=== PATIENT | male | born 1965 | race Caucasian/White ===

== ENCOUNTER 2017-03-10 05:39 | Day surgery (SDC) | payer BC, OTHER ==
[2017-03-10] MEDS ORDERED: DIPRIVAN 200 MG/20 ML IV ONE (05:40)
[2017-03-10] MEDS ORDERED: Ketamine HCl 50 MG/ML IV ONE (05:40)
[2017-03-10] MEDS ORDERED: Lactated Ringers 1,000 ML IV SCH (06:30)
[2017-03-10 06:38] VITALS: PULSE 63; O2SAT 96
[2017-03-10 09:01] VITALS: BP 137/79
--- NOTE | 2017-03-10 09:13 | OP ---
SURGERY DATE/TIME: 03/10/2017 0743 PREOPERATIVE DIAGNOSIS: Screening exam. POSTOPERATIVE DIAGNOSIS: Small polyp in the proximal transverse colon. PROCEDURE: Colonoscopy with cold biopsy. SURGEON: Dr. Rod. ANESTHESIA: Medications were given by the anesthesia department. HISTORY: The patient is a 52 year old white male patient presenting now for screening colonoscopy. He was appraised of the risks of the procedure including the risk of perforation, phlebitis, untoward reaction to medication, bleeding or missed lesions. The patient verbalized his understanding and desired to have the procedure performed. DESCRIPTION OF PROCEDURE: The patient was given the medications by the anesthesia department. He had continuous pulse oximetry, ECG monitoring, intermittent blood pressure monitoring and tidal CO2 monitoring during the examination. He was placed in left lateral decubitus position. A digital rectal examination was performed and revealed normal anal sphincter tone and no masses and normal prostate. The flexible Olympus pediatric colonoscope was used to intubate the rectum. A view of the colon was developed sequentially to the cecum. Upon insertion and withdrawal, there was noted a small polyp in the proximal transverse colon and this was approximately 0.5 cm in size. It was destroyed using cold biopsy technique. Upon insertion and withdrawal including a retroflex view in the rectum, no other mucosal lesions were encountered. The scope was removed from the patient who tolerated the procedure well and was sent back to OP recovery in good condition. The prep was noted to be fair.
== END 2017-03-10 09:05 | disposition home or self-care (01) ==
LOC: SDC 05:39 → EDSTATUS 08:18 → SDC 09:05
PROVIDERS: ATTEND Family Medicine
PROC: 0DBL8ZX Excision of Transverse Colon, Via Natural or Artificial Opening Endoscopic, Diagnostic (ICD-10-PCS; principal; 2017-03-10)
DX: K63.5 Polyp of colon (principal); Z12.11 Encounter for screening for malignant neoplasm of colon
CPT/HCPCS: 00810; 88305; J2704

== ENCOUNTER 2021-12-06 03:09 | Observation (INO) | payer SELFPAY ==
[2021-12-06] MEDS ORDERED: BABY ASPIRIN 81 MG CHEW PO ONE (03:10)
[2021-12-06] MEDS ORDERED: CARDIZEM DRIP 100 MG/100 ML D5W 100 ML IV PRN (03:27)
--- NOTE | 2021-12-06 03:38 | ERPHSYRPT ---
- History of Present Illness Time Seen by Provider: 12/06/21 03:10 Historian: patient Exam Limitations: no limitations Physician History: 56 years old male with history of PE/DVT on Coumadin, hypertension, GERD presented in the ER with chief complaint of chest pain waking him up from sleep around midnight. Patient reports this is a dull aching fullness sensation with palpitations and shortness of breath. Patient reports moderate intensity initially with some pain/tingling left leg and arm which is improved. Patient report this has been going off and on for almost a month having fluttering sensation in the middle of the night with some shortness of breath and improves on its own. Also report associated shortness of breath with palpitations. No fevers or chills/cough reported. Patient is in A. fib with RVR on presentation in the ER and this is new onset as patient is unaware of it. Timing/Duration: hour(s) (4), intermittent, sudden, improved Activities at Onset: sleep Quality: fullness, sharpness Location: substernal Chest Pain Radiation: no radiation Severity of Pain-Max: moderate Severity of Pain-Current: mild Associated Symptoms: palpitations, shortness of breath Prior Chest Pain/Cardiac Workup: no prior cardiac workup Nitro Today/Relief: 0.4 mg x 2 Aspirin Treatment Today: unknown Allergies/Adverse Reactions: No Known Drug Allergies Allergy (Unverified 12/06/21 03:43) Home Medications: Carvedilol [Coreg] 6.25 mg PO BID 12/06/21 [History] - Review of Systems Constitutional: No Symptoms Eyes: No Symptoms Ears, Nose, & Throat: No Symptoms Respiratory: Dyspnea Cardiac: Chest Pain, Edema, Palpitations Abdominal/Gastrointestinal: No Symptoms Genitourinary Symptoms: No Symptoms Musculoskeletal: No Symptoms Skin: No Symptoms Neurological: No Symptoms Psychological: No Symptoms Endocrine: No Symptoms Hematologic/Lymphatic: No Symptoms Immunological/Allergic: No Symptoms - Nursing Vital Signs Nursing Vital Signs: Initial Vital Signs Temperature 97.5 F 12/06/21 03:10 Pulse Rate 108 H 12/06/21 03:10 Respiratory Rate 20 12/06/21 03:10 Blood Pressure 134/94 12/06/21 03:10 O2 Sat by Pulse Oximetry 97 12/06/21 03:10 Pain Scale Pain Intensity 2 - Physical Exam General Appearance: no apparent distress, alert Eye Exam: PERRL/EOMI Ears, Nose, Throat Exam: normal ENT inspection Neck Exam: normal inspection, non-tender, supple, full range of motion Respiratory Exam: normal breath sounds, lungs clear Cardiovascular Exam: tachycardia, irregular, edema Gastrointestinal/Abdomen Exam: soft, normal bowel sounds, No tenderness Back Exam: normal inspection, normal range of motion Extremity Exam: normal range of motion, pedal edema Neurologic Exam: alert, oriented x 3, cooperative, trumpet player II-XII nml as tested, normal mood/affect Skin Exam: normal color SpO2 Interpretation: normal SpO2: 98 O2 Delivery: Room Air Ordered Tests: Active Orders 24 hr Category Date Time Status [employer] STAT Care 12/06/21 03:11 Active EKG-ER Only STAT Care 12/06/21 03:10 Active IV Insertion STAT Care 12/06/21 03:10 Active CHEST 1 VIEW (PORTABLE) Stat Exams 12/06/21 03:10 Taken CBC W DIFF Stat Lab 12/06/21 03:41 Completed CMP Stat Lab 12/06/21 03:41 Completed NT PRO BNP Stat Lab 12/06/21 03:41 Completed PROTIME WITH INR Stat Lab 12/06/21 03:42 Completed TROPONIN Q4H Lab 12/06/21 03:41 Completed TROPONIN Q4H Lab 12/06/21 07:15 Ordered TROPONIN Q4H Lab 12/06/21 11:15 Ordered Medication Summary Generic Name Dose Route Start Last Admin Trade Name Freq PRN Reason Stop Dose Admin Diltiazem HCl 100 mls @ 5 mls/hr 12/06/21 03:27 Cardizem Drip 100 Mg/100 Ml D5w IV 01/05/22 03:26 .Q20H PRN HEART RATE/ A-FIB Protocol 5 MG/HR Discontinued Medications Generic Name Dose Route Start Last Admin Trade Name Freq PRN Reason Stop Dose Admin Aspirin 324 mg 12/06/21 03:10 12/06/21 03:48 Aspirin 81 Mg Tab.Chew PO 12/06/21 03:11 324 mg STAT ONE Administration Lab/Rad Data: Laboratory Result Diagrams 12/06/21 03:41 12/06/21 03:41 Laboratory Results 12/06/21 12/06/21 12/06/21 Range/Units 03:42 03:41 03:41 WBC (4.0-10.5) x10^3/uL RBC (4.1-5.6) x10^6/uL Hgb (12.5-18.0) g/dL Hct (42-50) % MCV (78-100) fL MCH (26-32) pg MCHC (32-36) g/dL RDW (11.5-14.0) % Plt Count (150-450) x10^3/uL MPV (7.5-11.0) fL Gran % (36.0-66.0) % Immature Gran % (Auto) (0.00-0.4) % Nucleat RBC Rel Count (0.00-0.1) % Eos # (Auto) (0-0.5) x10^3/uL Immature Gran # (Auto) (0.00-0.03) x10^3u/L Absolute Lymphs (auto) (1.0-4.6) x10^3/uL Absolute Monos (auto) (0.0-1.3) x10^3/uL Absolute Nucleated RBC (0.00-0.01) x10^3u/L Lymphocytes % (24.0-44.0) % Monocytes % (0.0-12.0) % Eosinophils % (0.00-5.0) % Basophils % (0.0-0.4) % Absolute Granulocytes (1.4-6.9) x10^3/uL Basophils # (0-0.4) x10^3/uL PT 30.9 H (9.4-12.5) SECONDS INR 3.24 H (0.8-3.0) Sodium 139 (137-145) mmol/L Potassium 4.3 (3.5-5.1) mmol/L Chloride 104 (98-107) mmol/L Carbon Dioxide 27 (22-30) mmol/L Anion Gap 12.6 (5-15) MEQ/L BUN 25 H (9-20) mg/dL Creatinine 1.35 H (0.66-1.25) mg/dL Estimated GFR 58.5 ML/MIN Glucose 116 H (74-106) mg/dL Calcium 8.9 (8.4-10.2) mg/dL Total Bilirubin 0.70 (0.2-1.3) mg/dL AST 38 (17-59) U/L ALT 41 (0-50) U/L Alkaline Phosphatase 54 (38-126) U/L Troponin I 0.017 (0.000-0.034) ng/mL NT-Pro-B Natriuret Pep 360 (0-900) pg/mL Serum Total Protein 7.4 (6.3-8.2) g/dL Albumin 4.3 (3.5-5.0) g/dL 12/06/21 Range/Units 03:41 WBC 6.8 (4.0-10.5) x10^3/uL RBC 4.80 (4.1-5.6) x10^6/uL Hgb 15.2 (12.5-18.0) g/dL Hct 46.2 (42-50) % MCV 96.3 (78-100) fL MCH 31.7 (26-32) pg MCHC 32.9 (32-36) g/dL RDW 13.7 (11.5-14.0) % Plt Count 169 (150-450) x10^3/uL MPV 10.7 (7.5-11.0) fL Gran % 43.7 (36.0-66.0) % Immature Gran % (Auto) 0.3 (0.00-0.4) % Nucleat RBC Rel Count 0.0 (0.00-0.1) % Eos # (Auto) 0.23 (0-0.5) x10^3/uL Immature Gran # (Auto) 0.02 (0.00-0.03) x10^3u/L Absolute Lymphs (auto) 2.53 (1.0-4.6) x10^3/uL Absolute Monos (auto) 0.99 (0.0-1.3) x10^3/uL Absolute Nucleated RBC 0.00 (0.00-0.01) x10^3u/L Lymphocytes % 37.4 (24.0-44.0) % Monocytes % 14.6 H (0.0-12.0) % Eosinophils % 3.4 (0.00-5.0) % Basophils % 0.6 (0.0-0.4) % Absolute Granulocytes 2.95 (1.4-6.9) x10^3/uL Basophils # 0.04 (0-0.4) x10^3/uL PT (9.4-12.5) SECONDS INR (0.8-3.0) Sodium (137-145) mmol/L Potassium (3.5-5.1) mmol/L Chloride (98-107) mmol/L Carbon Dioxide (22-30) mmol/L Anion Gap (5-15) MEQ/L BUN (9-20) mg/dL Creatinine (0.66-1.25) mg/dL Estimated GFR ML/MIN Glucose (74-106) mg/dL Calcium (8.4-10.2) mg/dL Total Bilirubin (0.2-1.3) mg/dL AST (17-59) U/L ALT (0-50) U/L Alkaline Phosphatase (38-126) U/L Troponin I (0.000-0.034) ng/mL NT-Pro-B Natriuret Pep (0-900) pg/mL Serum Total Protein (6.3-8.2) g/dL Albumin (3.5-5.0) g/dL - Progress Progress: improved Air Movement: good Progress Note: 12/06/21 04:44 56 years old is evaluated for palpitation with shortness of breath and chest pain. EKG showed atrial fibrillation with rate in low 100s. It is bouncing between 90-1 10. patient is anticoagulated with Coumadin 3.24. Chest x-ray showed no acute cardiopulmonary findings. Normal white count. Negative initial troponin. He will be given a bolus of Cardizem and Cardizem drip if heart rate stays continuously above 110. Atrial fibrillation is new onset. Discussed with and patient is being admitted. Blood Culture(s) Obtained: No Antibiotics given: No Discussed with : Cipriano Will see patient in: hospital (observation) Counseled pt/family regarding: lab results, diagnosis, need for follow-up, rad results - Departure Departure Disposition: Observation Clinical Impression: Atrial fibrillation with RVR, Chest pain, rule out acute myocardial infarction Condition: Stable Critical Care Time: No
[2021-12-06 03:43] LABS: Absolute Neutrophil Ct (ANC) 2.95 x10^3/uL (1.4-6.9); Basophil (Absolute #) 0.04 x10^3/uL (0-0.4); Eosinophil % 3.4 % (0.00-5.0); Eosinophil (Absolute #) 0.23 x10^3/uL (0-0.5); Hematocrit 46.2 % (42-50); Hemoglobin 15.2 g/dL (12.5-18.0); Lymphocyte (Absolute #) 2.53 x10^3/uL (1.0-4.6); Lymphocytes % 37.4 % (24.0-44.0); Mean Cell Volume 96.3 fL (78-100); Mean Corpuscular Hemoglobin 31.7 pg (26-32); Mean Corpuscular Hgb Concent. 32.9 g/dL (32-36); Mean Platelet Volume 10.7 fL (7.5-11.0); Monocyte (Absolute #) 0.99 x10^3/uL (0.0-1.3); Monocytes % 14.6 % (0.0-12.0); Neutrophil % 43.7 % (36.0-66.0); Platelet Count 169 x10^3/uL (150-450); Red Cell Distribution Width 13.7 % (11.5-14.0); White Blood Count 6.8 x10^3/uL (4.0-10.5)
[2021-12-06 03:57] LABS: INR 3.24 (0.8-3.0); PROTIME 30.9 SECONDS (9.4-12.5)
[2021-12-06 04:05] LABS: ALBUMIN 4.3 g/dL (3.5-5.0); ANION GAP 12.6 MEQ/L (5-15); BILIRUBIN,TOTAL 0.7 mg/dL (0.2-1.3); Calcium 8.9 mg/dL (8.4-10.2); Creatinine 1 1.35 mg/dL (0.66-1.25); EST GLOMERULAR FILTRATION RATE 58.5 ML/MIN; Potassium 4.3 mmol/L (3.5-5.1); Total Protein 7.4 g/dL (6.3-8.2)
[2021-12-06] MEDS ORDERED: Cardizem IV 50 MG/10 ML IV ONE ×2 (04:47→04:56)
[2021-12-06] MEDS ORDERED: Sodium Chloride 0.9% 1000 ML 1,000 ML ONE (04:56)
[2021-12-06] MEDS ORDERED: Sodium Chloride 0.9% 1000 ML 1,000 ML IV SCH (05:00)
[2021-12-06 05:40] LABS: INFLUENZA A NEGATIVE (NEGATIVE); INFLUENZA B NEGATIVE (NEGATIVE); RESPIRATORY SYNCTIAL VIRUS NEGATIVE (Negative); SARS-CoV-2 Xpert Express NEGATIVE (NEGATIVE)
[2021-12-06] MEDS ORDERED: MORPHINE SULFATE 4 MG INJ IV PRN (06:17)
[2021-12-06] MEDS ORDERED: TYLENOL 325 MG PO PRN (06:17)
[2021-12-06] MEDS ORDERED: DUONEB 0.5-3 MG/3 ml Neb IH PRN (06:17)
[2021-12-06] MEDS ORDERED: Zofran 4 MG/2 ML VIAL IV PRN (06:17)
--- NOTE | 2021-12-06 07:57 | PCM.HP ---
History of Present Illness - Chief Complaint Chief Complaint: palpitations for 1 day History of Present Illness: Mr.WILLIAMSON LUCIO is a 56 year old male.with history of PE/DVT on Coumadin, hypertension, GERD presented in the ER with chief complaint of chest pain waking him up from sleep around midnight. Patient reports this is a dull aching fullness sensation with palpitations and shortness of breath. Patient reports moderate intensity initially with some pain/tingling left leg and arm which is improved. Patient report this has been going off and on for almost a month having fluttering sensation in the middle of the night with some shortness of breath and improves on its own. Also report associated shortness of breath with palpitations. No fevers or chills/cough reported. Patient is in A. fib with RVR on presentation in the ER and this is new onset as patient is unaware of it. Timing/Duration: hour(s) (4), intermittent, sudden, improved Activities at Onset: sleep Quality: fullness, sharpness Location: substernal Chest Pain Radiation: no radiation Severity of Pain-Max: moderate Severity of Pain-Current: mild Associated Symptoms: palpitations, shortness of breath Prior Chest Pain/Cardiac Workup: no prior cardiac workup Nitro Today/Relief: 0.4 mg x 2 Aspirin Treatment Today: unknown - Review of Systems Constitutional: No Fever, No Chills Eyes: No Symptoms Ears, Nose, & Throat: No Symptoms Respiratory: No Cough, No Short Of Breath Cardiac: Palpitations, No Chest Pain, No Edema, No Syncope Abdominal/Gastrointestinal: No Abdominal Pain, No Nausea, No Vomiting, No Diarrhea Genitourinary Symptoms: No Dysuria Musculoskeletal: No Back Pain, No Neck Pain Skin: No Rash Neurological: No Dizziness, No Focal Weakness, No Sensory Changes Psychological: No Symptoms Endocrine: No Symptoms Hematologic/Lymphatic: No Symptoms Immunological/Allergic: No Symptoms Medications & Allergies Home Medications: Home Medication List Carvedilol [Coreg] 6.25 mg PO BID 12/06/21 [History Confirmed 12/06/21] Nitroglycerin 0.4 mg Tablet [Nitrostat 0.4 MG Tablet] 0.4 mg SL UD PRN 12/06/21 [History Confirmed 12/06/21] PANTOPRAZOLE 40 mg Tablet [Protonix 40MG Tablet] 40 mg PO DAILY 12/06/21 [History Confirmed 12/06/21] Warfarin Sodium 3 mg PO DAILY 12/06/21 [History Confirmed 12/06/21] Allergies/Adverse Reactions: Allergies Allergy/AdvReac Type Severity Reaction Status Date / Time No Known Drug Allergies Allergy Unverified 12/06/21 03:43 - Past Medical History Past Medical History: Yes Neurological History: No Pertinent History ENT History: No Pertinent History Cardiac History: Angina, Arrhythmia, Deep Vein Thrombosis, Hypertension Respiratory History: Pulmonary Embolism Endocrine Medical History: No Pertinent History Musculoskelatal History: No Pertinent History GI Medical History: No Pertinent History History: No Pertinent History Pyscho-Social History: No Pertinent History Male Reproductive Disorders: No Pertinent History Comment: 2004 blood clots behind left knee, and in right lung and pt has been on coumadin since. - Past Surgical History Past Surgical History: Yes Neuro Surgical History: No Pertinent History Cardiac History: No Pertinent History Respiratory Surgery: No Pertinent History GI Surgical History: No Pertinent History Genitourinary Surgical Hx: No Pertinent History Musculskeletal Surgical Hx: Orthopedic Surgery Male Surgical History: No Pertinent History Other Surgical History: pins in right hand - Social History Smoking Status: Never smoker Exposure to second hand smoke: Yes Alcohol: Occasionally Drug Use: none - Physical Exam Vital Signs: Vital Signs - 24 hr Temp Pulse Resp BP BP Pulse Ox 12/06/21 07:32 93 L 12/06/21 06:21 97.9 F 76 22 129/100 99 12/06/21 05:57 77 18 106/75 97 12/06/21 05:32 97.8 F 76 18 127/92 98 12/06/21 05:01 96 H 18 116/96 98 12/06/21 04:50 98 12/06/21 04:11 103 H 20 118/92 99 12/06/21 03:10 97.5 F 108 H 20 134/94 97 General Appearance: no apparent distress, alert Neurologic Exam: alert, oriented x 3, cooperative, normal mood/affect, nml cerebellar function, nml station & gait, sensation nml, No motor deficits Eye Exam: PERRL/EOMI, eyes nml inspection Ears, Nose, Throat Exam: normal ENT inspection, TMs normal, pharynx normal, moist mucous membranes Neck Exam: normal inspection, non-tender, supple, full range of motion Respiratory Exam: normal breath sounds, lungs clear, No respiratory distress Cardiovascular Exam: irregular Gastrointestinal/Abdomen Exam: soft, normal bowel sounds, No tenderness, No mass Back Exam: normal inspection, normal range of motion, No CVA tenderness, No vertebral tenderness Extremity Exam: normal inspection, normal range of motion, pelvis stable Skin Exam: normal color, warm, dry, No rash Lymphatic Exam: No adenopathy Results - Labs Lab/Micro Results: Lab Results-Last 24 Hours 12/06/21 12/06/21 12/06/21 Range/Units 03:41 03:41 03:41 WBC 6.8 (4.0-10.5) x10^3/uL RBC 4.80 (4.1-5.6) x10^6/uL Hgb 15.2 (12.5-18.0) g/dL Hct 46.2 (42-50) % MCV 96.3 (78-100) fL MCH 31.7 (26-32) pg MCHC 32.9 (32-36) g/dL RDW 13.7 (11.5-14.0) % Plt Count 169 (150-450) x10^3/uL MPV 10.7 (7.5-11.0) fL Gran % 43.7 (36.0-66.0) % Immature Gran % (Auto) 0.3 (0.00-0.4) % Nucleat RBC Rel Count 0.0 (0.00-0.1) % Eos # (Auto) 0.23 (0-0.5) x10^3/uL Immature Gran # (Auto) 0.02 (0.00-0.03) x10^3u/L Absolute Lymphs (auto) 2.53 (1.0-4.6) x10^3/uL Absolute Monos (auto) 0.99 (0.0-1.3) x10^3/uL Absolute Nucleated RBC 0.00 (0.00-0.01) x10^3u/L Lymphocytes % 37.4 (24.0-44.0) % Monocytes % 14.6 H (0.0-12.0) % Eosinophils % 3.4 (0.00-5.0) % Basophils % 0.6 (0.0-0.4) % Absolute Granulocytes 2.95 (1.4-6.9) x10^3/uL Basophils # 0.04 (0-0.4) x10^3/uL PT (9.4-12.5) SECONDS INR (0.8-3.0) Sodium 139 (137-145) mmol/L Potassium 4.3 (3.5-5.1) mmol/L Chloride 104 (98-107) mmol/L Carbon Dioxide 27 (22-30) mmol/L Anion Gap 12.6 (5-15) MEQ/L BUN 25 H (9-20) mg/dL Creatinine 1.35 H (0.66-1.25) mg/dL Estimated GFR 58.5 ML/MIN Glucose 116 H (74-106) mg/dL Calcium 8.9 (8.4-10.2) mg/dL Total Bilirubin 0.70 (0.2-1.3) mg/dL AST 38 (17-59) U/L ALT 41 (0-50) U/L Alkaline Phosphatase 54 (38-126) U/L Troponin I 0.017 (0.000-0.034) ng/mL NT-Pro-B Natriuret Pep 360 (0-900) pg/mL Serum Total Protein 7.4 (6.3-8.2) g/dL Albumin 4.3 (3.5-5.0) g/dL Influenza Type A Ag (NEGATIVE) Influenza Type B Ag (NEGATIVE) RSV (PCR) (Negative) SARS-CoV-2 (PCR) (NEGATIVE) 12/06/21 12/06/21 12/06/21 Range/Units 03:42 05:02 07:03 WBC (4.0-10.5) x10^3/uL RBC (4.1-5.6) x10^6/uL Hgb (12.5-18.0) g/dL Hct (42-50) % MCV (78-100) fL MCH (26-32) pg MCHC (32-36) g/dL RDW (11.5-14.0) % Plt Count (150-450) x10^3/uL MPV (7.5-11.0) fL Gran % (36.0-66.0) % Immature Gran % (Auto) (0.00-0.4) % Nucleat RBC Rel Count (0.00-0.1) % Eos # (Auto) (0-0.5) x10^3/uL Immature Gran # (Auto) (0.00-0.03) x10^3u/L Absolute Lymphs (auto) (1.0-4.6) x10^3/uL Absolute Monos (auto) (0.0-1.3) x10^3/uL Absolute Nucleated RBC (0.00-0.01) x10^3u/L Lymphocytes % (24.0-44.0) % Monocytes % (0.0-12.0) % Eosinophils % (0.00-5.0) % Basophils % (0.0-0.4) % Absolute Granulocytes (1.4-6.9) x10^3/uL Basophils # (0-0.4) x10^3/uL PT 30.9 H (9.4-12.5) SECONDS INR 3.24 H (0.8-3.0) Sodium (137-145) mmol/L Potassium (3.5-5.1) mmol/L Chloride (98-107) mmol/L Carbon Dioxide (22-30) mmol/L Anion Gap (5-15) MEQ/L BUN (9-20) mg/dL Creatinine (0.66-1.25) mg/dL Estimated GFR ML/MIN Glucose (74-106) mg/dL Calcium (8.4-10.2) mg/dL Total Bilirubin (0.2-1.3) mg/dL AST (17-59) U/L ALT (0-50) U/L Alkaline Phosphatase (38-126) U/L Troponin I < 0.012 (0.000-0.034) ng/mL NT-Pro-B Natriuret Pep (0-900) pg/mL Serum Total Protein (6.3-8.2) g/dL Albumin (3.5-5.0) g/dL Influenza Type A Ag NEGATIVE (NEGATIVE) Influenza Type B Ag NEGATIVE (NEGATIVE) RSV (PCR) NEGATIVE (Negative) SARS-CoV-2 (PCR) NEGATIVE (NEGATIVE) - Radiology Impressions Radiology Exams & Impressions: Radiology Procedures Category Date Time Status CHEST 1 VIEW (PORTABLE) Stat Exams 12/06/21 03:10 Taken - Other Procedures and Tests Respiratory Therapy 12/06/21 06:17 Oxygen Nasal Cannula 2 lpm Assessment/Plan (1) Atrial fibrillation with RVR Current Visit: Yes Status: Acute Assessment & Plan: Chief Complaint Diagnosis Afib with RVR Allergies Allergy/AdvReac Type Severity Reaction Status Date / Time No Known Drug Allergies Allergy Unverified 12/06/21 03:43 Vital Signs (Last 24 hours) Temp Pulse Resp BP BP Pulse Ox 12/06/21 07:32 93 L 12/06/21 06:21 97.9 F 76 22 129/100 99 12/06/21 05:57 77 18 106/75 97 12/06/21 05:32 97.8 F 76 18 127/92 98 12/06/21 05:01 96 H 18 116/96 98 12/06/21 04:50 98 12/06/21 04:11 103 H 20 118/92 99 12/06/21 03:10 97.5 F 108 H 20 134/94 97 Home Medications Medication Instructions Recorded Confirmed Last Taken Type Carvedilol [Coreg] 6.25 mg PO BID 12/06/21 12/06/21 12/05/21 21:30 History 6.25 MG Nitroglycerin 0.4 mg Tablet 0.4 mg SL UD PRN 12/06/21 12/06/21 12/06/21 History [Nitrostat 0.4 MG Tablet] 0200 PANTOPRAZOLE 40 mg Tablet 40 mg PO DAILY 12/06/21 12/06/21 12/05/21 History [Protonix 40MG Tablet] Warfarin Sodium 3 mg PO DAILY 12/06/21 12/06/21 12/05/21 History Current Medications Generic Name Dose Route Start Last Admin Trade Name Freq PRN Reason Stop Dose Admin Acetaminophen 650 mg 12/06/21 06:17 Acetaminophen 325 Mg Tablet PO 01/05/22 06:16 Q4H PRN PRN PAIN AND/OR FEVER Sodium Chloride 1,000 mls @ 100 mls/hr 12/06/21 06:17 Sodium Chloride 0.9% 1000 Ml IV 01/05/22 06:16 .Q10H ROSA Morphine Sulfate 4 mg 12/06/21 06:17 Morphine Sulfate 4 Mg/Ml Injection IV 12/11/21 06:16 Q4H PRN PRN PAIN Ondansetron HCl 4 mg 12/06/21 06:17 Ondansetron Hcl 4 Mg/2 Ml Vial IV 01/05/22 06:16 Q6H PRN PRN NAUSEA/VOMITING Pantoprazole Sodium 40 mg 12/06/21 10:00 Pantoprazole 40 Mg Vial IV 01/05/22 09:59 Q24H10 ROSA Discontinued Medications Generic Name Dose Route Start Last Admin Trade Name Freq PRN Reason Stop Dose Admin Albuterol/Ipratropium 3 ml 12/06/21 06:17 Ipratropium/Albuterol Sulfate 3 Ml Ampul.Neb IH 01/05/22 06:16 Q4HPRN PRN SHORTNESS OF BREATH/WHEEZING Aspirin 324 mg 12/06/21 03:10 12/06/21 03:48 Aspirin 81 Mg Tab.Chew PO 12/06/21 03:11 324 mg STAT ONE Administration Diltiazem HCl 15 mg 12/06/21 04:47 12/06/21 04:58 Diltiazem Hcl Iv 5 Mg/Ml Vial IV 12/06/21 04:48 15 mg STAT ONE Administration Diltiazem HCl Confirm 12/06/21 04:56 Diltiazem Hcl Iv 5 Mg/Ml Vial Administered 12/06/21 04:57 Dose 50 mg IV .STK-MED ONE Diltiazem HCl 100 mls @ 5 mls/hr 12/06/21 03:27 Cardizem Drip 100 Mg/100 Ml D5w IV 01/05/22 03:26 .Q20H PRN HEART RATE/ A-FIB Protocol 5 MG/HR Sodium Chloride Confirm 12/06/21 04:56 Sodium Chloride 0.9% 1000 Ml Administered 12/06/21 04:57 Dose 1,000 mls @ ud .ROUTE .STK-MED ONE Sodium Chloride 1,000 mls @ 100 mls/hr 12/06/21 05:00 12/06/21 05:00 Sodium Chloride 0.9% 1000 Ml IV 01/05/22 04:59 100 mls/hr .Q10H ROSA Administration Intake & Output (Last 24 hours) 12/03/21 12/04/21 12/05/21 12/06/21 11:59 11:59 11:59 11:59 Weight 113.4 kg Laboratory Results (Last 24 hours) 12/06/21 12/06/21 12/06/21 07:03 05:02 03:42 WBC RBC Hgb Hct MCV MCH MCHC RDW Plt Count MPV Gran % Immature Gran % (Auto) Nucleat RBC Rel Count Eos # (Auto) Immature Gran # (Auto) Absolute Lymphs (auto) Absolute Monos (auto) Absolute Nucleated RBC Lymphocytes % Monocytes % Eosinophils % Basophils % Absolute Granulocytes Basophils # PT 30.9 H INR 3.24 H Sodium Potassium Chloride Carbon Dioxide Anion Gap BUN Creatinine Estimated GFR Glucose Calcium Total Bilirubin AST ALT Alkaline Phosphatase Troponin I < 0.012 NT-Pro-B Natriuret Pep Serum Total Protein Albumin Influenza Type A Ag NEGATIVE Influenza Type B Ag NEGATIVE RSV (PCR) NEGATIVE SARS-CoV-2 (PCR) NEGATIVE 12/06/21 12/06/21 12/06/21 03:41 03:41 03:41 WBC 6.8 RBC 4.80 Hgb 15.2 Hct 46.2 MCV 96.3 MCH 31.7 MCHC 32.9 RDW 13.7 Plt Count 169 MPV 10.7 Gran % 43.7 Immature Gran % (Auto) 0.3 Nucleat RBC Rel Count 0.0 Eos # (Auto) 0.23 Immature Gran # (Auto) 0.02 Absolute Lymphs (auto) 2.53 Absolute Monos (auto) 0.99 Absolute Nucleated RBC 0.00 Lymphocytes % 37.4 Monocytes % 14.6 H Eosinophils % 3.4 Basophils % 0.6 Absolute Granulocytes 2.95 Basophils # 0.04 PT INR Sodium 139 Potassium 4.3 Chloride 104 Carbon Dioxide 27 Anion Gap 12.6 BUN 25 H Creatinine 1.35 H Estimated GFR 58.5 Glucose 116 H Calcium 8.9 Total Bilirubin 0.70 AST 38 ALT 41 Alkaline Phosphatase 54 Troponin I 0.017 NT-Pro-B Natriuret Pep 360 Serum Total Protein 7.4 Albumin 4.3 Influenza Type A Ag Influenza Type B Ag RSV (PCR) SARS-CoV-2 (PCR) Orders (Last 24 hours) Category Date Time Status Bedrest ROUTINE Activity 12/06/21 06:17 Active Up With Assistance ROUTINE Activity 12/06/21 06:17 Active Hydro Technician STAT Care 12/06/21 03:11 Completed Code Status Order ROUTINE Care 12/06/21 06:17 Active Code Status Order ROUTINE Care 12/06/21 06:17 Completed EKG-ER Only STAT Care 12/06/21 03:10 Completed Fall Protocol Q1H Care 12/06/21 06:17 Active IV Care Q6H Care 12/06/21 06:17 Active IV Care Q6H Care 12/06/21 06:17 Completed IV Insertion STAT Care 12/06/21 03:[address] in Observation ROUTINE Care 12/06/21 06:17 Active Rc Novak, Apply ROUTINE Care 12/06/21 06:17 Active Weight,Daily 0600 Care 12/06/21 06:17 Active Heart-Healthy Diet Diet 12/06/21 Breakfast Active CHEST 1 VIEW (PORTABLE) Stat Exams 12/06/21 03:10 Taken CBC W DIFF Stat Lab 12/06/21 03:41 Completed CMP Stat Lab 12/06/21 03:41 Completed COVID/FLU/RSV Panel Stat Lab 12/06/21 05:02 Completed NT PRO BNP Stat Lab 12/06/21 03:41 Completed PROTIME WITH INR Stat Lab 12/06/21 03:42 Completed TROPONIN Q4H Lab 12/06/21 03:41 Completed TROPONIN Q4H Lab 12/06/21 07:03 Completed TROPONIN Q4H Lab 12/06/21 11:15 Ordered Acetaminophen 325 mg [Tylenol 325 mg] Med 12/06/21 06:17 Active 650 mg PO Q4H PRN PRN Albuterol/Ipratropium 3ml Neb* [DUONEB 0.5-3 MG/3 ml Med 12/06/21 06:17 Discontinued Neb] 3 ml IH Q4HPRN PRN Aspirin 81 gm Chew [Baby Aspirin 81 mg Chew] Med 12/06/21 03:10 Discontinued 324 mg PO STAT ONE Diltiazem HCl 100 mg/100 ml [Cardizem Drip 100 mg/100 Med 12/06/21 03:27 Discontinued ml D5w] 100 ml IV 5 mg/hr Diltiazem HCl 50 mg/10 ml [Cardizem IV 50 MG/10 ML Med 12/06/21 04:47 Discontinued *] 15 mg IV STAT ONE Diltiazem HCl 50 mg/10 ml [Cardizem IV 50 MG/10 ML Med 12/06/21 04:56 Discontinued *] 50 mg IV .STK-MED ONE Morphine Sulfate 4 mg Inj Med 12/06/21 06:17 Active 4 mg IV Q4H PRN PRN NaCl 0.9% 1000 ml [Sodium Chloride 0.9% 1000 ML] 1,000 Med 12/06/21 04:56 Discontinued ml .ROUTE UD NaCl 0.9% 1000 ml [Sodium Chloride 0.9% 1000 ML] 1,000 Med 12/06/21 05:00 Discontinued ml IV 100 mls/hr NaCl 0.9% 1000 ml [Sodium Chloride 0.9% 1000 ML] 1,000 Med 12/06/21 06:17 Active ml IV 100 mls/hr Ondansetron HCl 4 mg/2 ml [Zofran 4 MG/2 ML VIAL] Med 12/06/21 06:17 Active 4 mg IV Q6H PRN PRN Pantoprazole 40 mg [Protonix 40 mg IV] Med 12/06/21 10:00 Active 40 mg IV Q24H10 Oxygen Nasal Cannula 2 lpm RT 12/06/21 06:17 Active Pulse Oximetry .continuos RT 12/06/21 07:32 Active Transfer Order Routine Transfer 12/06/21 Completed Patient Care Notes (Last 24 hours) 12/06/21 05:45 Nursing Note by Chela Bruno B/P 120/82, 67 A FIB, 18, 97% ON ROOM AIR. Initialized on 12/06/21 05:45 - END OF NOTE 12/06/21 05:39 Nursing Note by Chela Bruno PT CONTINUES TO REST WITHOUT DISTRESS AT THIS TIME, HR 77 REMAINS IN AFIB, RESP 16, 127/89, 97% SAT ON ROOM AIR. WILL CONTINUE TO MONITOR CLOSELY. REMAINS AT BEDSIDE. I WILL BE REPORTING OFF TO HOLA R.N AT THIS TIME. Initialized on 12/06/21 05:39 - END OF NOTE 12/06/21 05:27 Nursing Note by Chela Bruno 0500- ADMINISTERED 15MG CARDIZEM SLOW IVP PUSH, PT TOLERATED WELL. B/P 127/94, HR 81, SAT 97%, RESP 22. pT DENIES ANY C/O AT THIS TIME. PT STATES THAT C/P IS INTERMIT. AND IT IS STILL A 2/10. LEFT LEG REMAINS SWOLLEN AROUND ANKLE AND LOWER CALF. PT HAS BEEN BEING TREATED FOR BLOOD CLOTS BEHIND THE LEFT KNEE SINCE 2003. PP PALPATED. WILL CONTINUE TO MONITOR CLOSELY. Initialized on 12/06/21 05:27 - END OF NOTE Code(s): I48.91 - UNSPECIFIED ATRIAL FIBRILLATION (2) Chest pain, rule out acute myocardial infarction Current Visit: Yes Status: Acute Code(s): R07.9 - CHEST PAIN, UNSPECIFIED
--- NOTE | 2021-12-06 09:15 | XRAY ---
Indication: Chest pain. Comparison: None Portable chest demonstrates normal heart and lungs with incidental small right base calcified granuloma. Bony thorax intact with minimal degenerative changes.
[2021-12-06] MEDS ORDERED: PROTONIX 40 MG IV IV SCH (10:00)
[2021-12-06] MEDS ORDERED: Nitrostat 0.4 MG Tablet SL PRN (10:20)
[2021-12-06] MEDS: Protonix 40MG Tablet PO SCH ×2 (10:48→10:53)
[2021-12-06 11:31] LABS: Appearance CLEAR (CLEAR); Bilirubin NEGATIVE (NEGATIVE); Dipstick done @ ? MAIN LAB; Glucose NEGATIVE (NEGATIVE); Ketones NEGATIVE (NEGATIVE); Nitrite NEGATIVE (NEGATIVE); Ph 6.5 (5-6); Protein,Urine Dip NEGATIVE (Negative); RBC NEGATIVE Ery/ul (0-5); Urobilinogen 0.2 mg/dL (0-1)
[2021-12-06 11:57] LABS: Urine Cultured Indicated? NO
[2021-12-06] MEDS: Cardizem CD PO SCH (12:43)
[2021-12-06] MEDS: Sodium Chloride 0.9% 1000 ML 1,000 ML IV SCH ×2 (15:12→19:40)
[2021-12-06] MEDS ORDERED: Coumadin 3 MG PO SCH (18:00)
[2021-12-06] MEDS: Coreg PO SCH (21:30)
[2021-12-07] MEDS: Sodium Chloride 0.9% 1000 ML 1,000 ML IV SCH (00:17)
[2021-12-07] MEDS ORDERED: CEPACOL SORE THROAT LOZENGE PO PRN (06:21)
[2021-12-07] MEDS: Coreg PO SCH (08:50)
[2021-12-07] MEDS: Cardizem CD PO SCH (08:50)
[2021-12-07] MEDS: Protonix 40MG Tablet PO SCH (08:50)
[2021-12-07] MEDS ORDERED: NON-FORMULARY ITEM (Warfarin Sodium [Warfarin Sodium] 2 MG Tablet) PO SCH (10:00)
[2021-12-07 11:51] VITALS: BP 129/96; PULSE 90; O2SAT 96
--- NOTE | 2021-12-07 20:19 | PCM.DS ---
Discharge Summary Date of Admission: 12/06/21 06:10 Admitting Physician: KELSEY PUGA Primary Care Provider: DAYAN BAUTISTA Allergies Allergies No Known Drug Allergies Allergy (Verified 12/06/21 09:18) Hospital Summary - Hospital Course Hospital Course: Chief Complaint Diagnosis palpitations for 1 day Allergies Allergy/AdvReac Type Severity Reaction Status Date / Time No Known Drug Allergies Allergy Verified 12/06/21 09:18 Vital Signs (Last 24 hours) Temp Pulse Resp BP Pulse Ox 12/07/21 12:00 90 12/07/21 11:49 98.1 F 90 16 129/96 96 12/07/21 07:32 98.2 F 81 16 101/84 98 12/07/21 07:30 76 12/07/21 04:00 97.1 F 76 15 113/88 98 12/07/21 00:20 96.8 F 78 21 104/79 92 L 12/07/21 00:01 85 Home Medications Medication Instructions Recorded Confirmed Last Taken Type Carvedilol [Coreg] 6.25 mg PO BID 12/06/21 12/06/21 12/05/21 21:30 History 6.25 MG Nitroglycerin 0.4 mg Tablet 0.4 mg SL UD PRN 12/06/21 12/06/21 12/06/21 History [Nitrostat 0.4 MG Tablet] 0200 PANTOPRAZOLE 40 mg Tablet 40 mg PO DAILY 12/06/21 12/06/21 12/05/21 History [Protonix 40MG Tablet] Warfarin Sodium 3 mg PO DAILY 12/06/21 12/06/21 12/05/21 History Diltiazem HCl [Cardizem Cd] 120 mg PO DAILY 30 Days #30 cap 12/07/21 Unknown Rx Current Medications Discontinued Medications Generic Name Dose Route Start Last Admin Trade Name Freq PRN Reason Stop Dose Admin Acetaminophen 650 mg 12/06/21 06:17 Acetaminophen 325 Mg Tablet PO 01/05/22 06:16 Q4H PRN PRN PAIN AND/OR FEVER Albuterol/Ipratropium 3 ml 12/06/21 06:17 Ipratropium/Albuterol Sulfate 3 Ml Ampul.Neb IH 01/05/22 06:16 Q4HPRN PRN SHORTNESS OF BREATH/WHEEZING Aspirin 324 mg 12/06/21 03:10 12/06/21 03:48 Aspirin 81 Mg Tab.Chew PO 12/06/21 03:11 324 mg STAT ONE Administration Carvedilol 6.25 mg 12/06/21 22:00 12/07/21 08:50 Carvedilol 6.25 Mg Tablet PO 01/05/22 21:59 Not Given BID ROSA Diltiazem HCl 15 mg 12/06/21 04:47 12/06/21 04:58 Diltiazem Hcl Iv 5 Mg/Ml Vial IV 12/06/21 04:48 15 mg STAT ONE Administration Diltiazem HCl Confirm 12/06/21 04:56 Diltiazem Hcl Iv 5 Mg/Ml Vial Administered 12/06/21 04:57 Dose 50 mg IV .STK-MED ONE Diltiazem HCl 180 mg 12/06/21 13:00 12/07/21 08:50 Diltiazem Hcl Cd 180 Mg Cap.Sr.24h PO 01/05/22 12:59 180 mg DAILY ROSA Administration Diltiazem HCl 100 mls @ 5 mls/hr 12/06/21 03:27 Cardizem Drip 100 Mg/100 Ml D5w IV 01/05/22 03:26 .Q20H PRN HEART RATE/ A-FIB Protocol 5 MG/HR Sodium Chloride Confirm 12/06/21 04:56 Sodium Chloride 0.9% 1000 Ml Administered 12/06/21 04:57 Dose 1,000 mls @ ud .ROUTE .STK-MED ONE Sodium Chloride 1,000 mls @ 100 mls/hr 12/06/21 05:00 12/06/21 05:00 Sodium Chloride 0.9% 1000 Ml IV 01/05/22 04:59 100 mls/hr .Q10H ROSA Administration Sodium Chloride 1,000 mls @ 100 mls/hr 12/06/21 06:17 12/07/21 00:17 Sodium Chloride 0.9% 1000 Ml IV 01/05/22 06:16 100 mls/hr .Q10H ROSA Administration Morphine Sulfate 4 mg 12/06/21 06:17 Morphine Sulfate 4 Mg/Ml Injection IV 12/11/21 06:16 Q4H PRN PRN PAIN Nitroglycerin 0.4 mg 12/06/21 10:20 Nitroglycerin 0.4 Mg Tablet Bottle SL 01/05/22 10:19 UD PRN CHEST PAIN Ondansetron HCl 4 mg 12/06/21 06:17 Ondansetron Hcl 4 Mg/2 Ml Vial IV 01/05/22 06:16 Q6H PRN PRN NAUSEA/VOMITING Pantoprazole Sodium 40 mg 12/06/21 10:00 12/06/21 19:41 Pantoprazole 40 Mg Vial IV 01/05/22 09:59 Not Given Q24H10 ROSA Pantoprazole Sodium 40 mg 12/06/21 11:00 12/07/21 08:50 Protonix (Pantoprazole) 40 Mg Tablet PO 01/05/22 10:59 Not Given DAILY ROSA Throat Lozenges 15 mg 12/07/21 06:21 12/07/21 06:23 Benzocaine/Menthol 15 Mg Lozenge - Cepacol PO 01/06/22 06:20 15 mg Q2HPRN PRN Administration SORE THROAT Warfarin Sodium 3 mg 12/06/21 18:00 12/06/21 17:53 Warfarin Sodium 3 Mg Tablet PO 01/05/22 17:59 Not Given COU ROSA Intake & Output (Last 24 hours) 12/05/21 12/06/21 12/07/21 12/08/21 11:59 11:59 11:59 11:59 Intake Total 3107 Output Total 1200 Balance 1907 Weight 113.4 kg 113.5 kg Orders (Last 24 hours) Category Date Time Status Discharge Routine Discharge 12/07/21 Ordered Benzocaine/Menthol [Cepacol Sore Throat Lozenge] Med 12/07/21 06:21 Discontinued 15 mg PO Q2HPRN PRN Carvedilol [Coreg ] Med 12/06/21 22:00 Discontinued 6.25 mg PO BID Patient Care Notes (Last 24 hours) 12/07/21 09:50 Case Management Note by Jennifer Nunez S/W PATIENT- HE CONTINUES TO DENY ANY NEW NEEDS AT TIME OF DC. 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 AT TIME OF DC Initialized on 12/07/21 09:50 - END OF NOTE - Vitals & Intake/Output Vital Signs: Vital Signs Temperature 98.1 F 12/07/21 11:49 Pulse Rate 90 12/07/21 12:00 Respiratory Rate 16 12/07/21 11:49 Blood Pressure 129/96 12/07/21 11:49 O2 Sat by Pulse Oximetry 96 12/07/21 11:49 Intake & Output: Intake & Output 12/05/21 12/06/21 12/07/21 12/08/21 11:59 11:59 11:59 11:59 Intake Total 3107 Output Total 1200 Balance 1907 Weight 113.4 kg 113.5 kg - Lab Result Diagrams: 12/06/21 03:41 12/06/21 03:41 - Radiology Exams Ordered Rad Exams-Entire Visit: Radiology Procedures Category Date Time Status CHEST 1 VIEW (PORTABLE) Stat Exams 12/06/21 03:10 Completed - Procedures and Test Procedures and Tests throughout Hospitalization: Therapy Orders & Screens 12/06/21 06:17 Oxygen Nasal Cannula 2 lpm Comment: Discharge Exam General Appearance: no apparent distress, alert Neurologic Exam: alert, oriented x 3, cooperative, normal mood/affect, nml cerebellar function, sensation nml, No motor deficits Eye Exam: PERRL, EOMI, eyes nml inspection Ears, Nose, Throat Exam: normal ENT inspection, pharynx normal, moist mucous membranes Neck Exam: normal inspection, non-tender, supple, full range of motion Respiratory Exam: normal breath sounds, lungs clear, No respiratory distress Cardiovascular Exam: regular rate/rhythm, normal heart sounds Gastrointestinal/Abdomen Exam: soft, No tenderness, No mass Male Genitalia Exam: deferred Rectal Exam: deferred Back Exam: normal inspection, normal range of motion, No CVA tenderness, No vertebral tenderness Extremity Exam: normal inspection, normal range of motion Skin Exam: normal color, warm, dry Final Diagnosis/Problem List - Final Discharge Diagnosis/Problem (1) Atrial fibrillation with RVR Status: Chronic Assessment & Plan: Chief Complaint Diagnosis palpitations for 1 day Allergies Allergy/AdvReac Type Severity Reaction Status Date / Time No Known Drug Allergies Allergy Verified 12/06/21 09:18 Vital Signs (Last 24 hours) Temp Pulse Resp BP Pulse Ox 12/07/21 12:00 90 12/07/21 11:49 98.1 F 90 16 129/96 96 12/07/21 07:32 98.2 F 81 16 101/84 98 12/07/21 07:30 76 12/07/21 04:00 97.1 F 76 15 113/88 98 12/07/21 00:20 96.8 F 78 21 104/79 92 L 12/07/21 00:01 85 Home Medications Medication Instructions Recorded Confirmed Last Taken Type Carvedilol [Coreg] 6.25 mg PO BID 12/06/21 12/06/21 12/05/21 21:30 History 6.25 MG Nitroglycerin 0.4 mg Tablet 0.4 mg SL UD PRN 12/06/21 12/06/21 12/06/21 History [Nitrostat 0.4 MG Tablet] 0200 PANTOPRAZOLE 40 mg Tablet 40 mg PO DAILY 12/06/21 12/06/21 12/05/21 History [Protonix 40MG Tablet] Warfarin Sodium 3 mg PO DAILY 12/06/21 12/06/21 12/05/21 History Diltiazem HCl [Cardizem Cd] 120 mg PO DAILY 30 Days #30 cap 12/07/21 Unknown Rx Current Medications Discontinued Medications Generic Name Dose Route Start Last Admin Trade Name Freq PRN Reason Stop Dose Admin Acetaminophen 650 mg 12/06/21 06:17 Acetaminophen 325 Mg Tablet PO 01/05/22 06:16 Q4H PRN PRN PAIN AND/OR FEVER Albuterol/Ipratropium 3 ml 12/06/21 06:17 Ipratropium/Albuterol Sulfate 3 Ml Ampul.Neb IH 01/05/22 06:16 Q4HPRN PRN SHORTNESS OF BREATH/WHEEZING Aspirin 324 mg 12/06/21 03:10 12/06/21 03:48 Aspirin 81 Mg Tab.Chew PO 12/06/21 03:11 324 mg STAT ONE Administration Carvedilol 6.25 mg 12/06/21 22:00 12/07/21 08:50 Carvedilol 6.25 Mg Tablet PO 01/05/22 21:59 Not Given BID ROSA Diltiazem HCl 15 mg 12/06/21 04:47 12/06/21 04:58 Diltiazem Hcl Iv 5 Mg/Ml Vial IV 12/06/21 04:48 15 mg STAT ONE Administration Diltiazem HCl Confirm 12/06/21 04:56 Diltiazem Hcl Iv 5 Mg/Ml Vial Administered 12/06/21 04:57 Dose 50 mg IV .STK-MED ONE Diltiazem HCl 180 mg 12/06/21 13:00 12/07/21 08:50 Diltiazem Hcl Cd 180 Mg Cap.Sr.24h PO 01/05/22 12:59 180 mg DAILY ROSA Administration Diltiazem HCl 100 mls @ 5 mls/hr 12/06/21 03:27 Cardizem Drip 100 Mg/100 Ml D5w IV 01/05/22 03:26 .Q20H PRN HEART RATE/ A-FIB Protocol 5 MG/HR Sodium Chloride Confirm 12/06/21 04:56 Sodium Chloride 0.9% 1000 Ml Administered 12/06/21 04:57 Dose 1,000 mls @ ud .ROUTE .STK-MED ONE Sodium Chloride 1,000 mls @ 100 mls/hr 12/06/21 05:00 12/06/21 05:00 Sodium Chloride 0.9% 1000 Ml IV 01/05/22 04:59 100 mls/hr .Q10H ROSA Administration Sodium Chloride 1,000 mls @ 100 mls/hr 12/06/21 06:17 12/07/21 00:17 Sodium Chloride 0.9% 1000 Ml IV 01/05/22 06:16 100 mls/hr .Q10H ROSA Administration Morphine Sulfate 4 mg 12/06/21 06:17 Morphine Sulfate 4 Mg/Ml Injection IV 12/11/21 06:16 Q4H PRN PRN PAIN Nitroglycerin 0.4 mg 12/06/21 10:20 Nitroglycerin 0.4 Mg Tablet Bottle SL 01/05/22 10:19 UD PRN CHEST PAIN Ondansetron HCl 4 mg 12/06/21 06:17 Ondansetron Hcl 4 Mg/2 Ml Vial IV 01/05/22 06:16 Q6H PRN PRN NAUSEA/VOMITING Pantoprazole Sodium 40 mg 12/06/21 10:00 12/06/21 19:41 Pantoprazole 40 Mg Vial IV 01/05/22 09:59 Not Given Q24H10 ROSA Pantoprazole Sodium 40 mg 12/06/21 11:00 12/07/21 08:50 Protonix (Pantoprazole) 40 Mg Tablet PO 01/05/22 10:59 Not Given DAILY ROSA Throat Lozenges 15 mg 12/07/21 06:21 12/07/21 06:23 Benzocaine/Menthol 15 Mg Lozenge - Cepacol PO 01/06/22 06:20 15 mg Q2HPRN PRN Administration SORE THROAT Warfarin Sodium 3 mg 12/06/21 18:00 12/06/21 17:53 Warfarin Sodium 3 Mg Tablet PO 01/05/22 17:59 Not Given COU ROSA Intake & Output (Last 24 hours) 12/05/21 12/06/21 12/07/21 12/08/21 11:59 11:59 11:59 11:59 Intake Total 3107 Output Total 1200 Balance 1907 Weight 113.4 kg 113.5 kg Orders (Last 24 hours) Category Date Time Status Discharge Routine Discharge 12/07/21 Ordered Benzocaine/Menthol [Cepacol Sore Throat Lozenge] Med 12/07/21 06:21 Discontinued 15 mg PO Q2HPRN PRN Carvedilol [Coreg ] Med 12/06/21 22:00 Discontinued 6.25 mg PO BID Patient Care Notes (Last 24 hours) 12/07/21 09:50 Case Management Note by Jennifer Nunez S/W PATIENT- HE CONTINUES TO DENY ANY NEW NEEDS AT TIME OF DC. 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 AT TIME OF DC Initialized on 12/07/21 09:50 - END OF NOTE Code(s): I48.91 - UNSPECIFIED ATRIAL FIBRILLATION (2) Chest pain, rule out acute myocardial infarction Status: Resolved Code(s): R07.9 - CHEST PAIN, UNSPECIFIED - Discharge Discharge Date: 12/07/21 Disposition: Home, Self-Care Condition: Stable Prescriptions: New Diltiazem HCl [Cardizem Cd] 120 mg PO DAILY 30 Days #30 cap Continue Carvedilol [Coreg] 6.25 mg PO BID Warfarin Sodium 3 mg PO DAILY PANTOPRAZOLE 40 mg Tablet [Protonix 40MG Tablet] 40 mg PO DAILY Nitroglycerin 0.4 mg Tablet [Nitrostat 0.4 MG Tablet] 0.4 mg SL UD PRN PRN Reason: Chest Pain Instructions: Atrial Fibrillation (DC) Additional Instructions: YOU CAN CONTACT THE INSURANCE NAVIGATOR AT [phone] ext [phone] IF YOUR INTERESTED IN LOOKING AT INSURANCE OPTIONS Follow up with: DAYAN BAUTISTA [Primary Care Provider] - 12/10/21 2:15 pm ROBERT RODRÍGUEZ [CONSULTING PHYSICIAN] - 12/10/21 11:30 am ([facility])
== END 2021-12-07 12:21 | disposition home or self-care (01) ==
LOC: ED 03:09 → ICU 06:10 → MERGE 06:10
PROVIDERS: ADMIT General Practice; ATTEND General Practice
DX: I48.20 Chronic atrial fibrillation, unspecified (principal); R07.9 Chest pain, unspecified; I10 Essential (primary) hypertension; K21.9 Gastro-esophageal reflux disease without esophagitis; Z79.01 Long term (current) use of anticoagulants; Z79.899 Other long term (current) drug therapy; Z20.828 Contact with and (suspected) exposure to other viral communicable diseases
CPT/HCPCS: 0241U; 36000; 36415; 71045; 80053; 81015; 83880; 84484; 85025; 85610; 93005; 93041; 96374; 96375; 99285; 93268; A9270-GY; G0378

== ENCOUNTER 2022-06-14 16:53 | Emergency (ER) | payer OTHER ==
--- NOTE | 2022-06-14 17:22 | ERPHSYRPT ---
- History of Present Illness Time Seen by Provider: 06/14/22 17:10 Source: patient Exam Limitations: no limitations Patient Subjective Stated Complaint: pt states "swelling and pain to left ankle even though I am on penicillin that Dr Rod put me on last Monday" Triage Nursing Assessment: Pt ambulated to room 8 independently with slight limp on left foot. Alert and oriented times three, able to speak in complete sentences, resp even and unlabored. Reports that when he is standing or walking he has pain in left medial ankle but denies pain at the time of the assessment. Swelling noted to left medial ankle with dayana red/ purple skin color. left dorsalis pedus palpable. Physician History: Patient is a 57-year-old white male who presents with a complaint of pain in the left ankle. This pain was present for the past [address] Rod and was placed on penicillin which she has taken but has not been benefited. 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 Method of Injury: unknown Occurred: days ago (10) Quality: aching, throbbing Severity of Pain-Max: severe Severity of Pain-Current: moderate Lower Extremities Pain: ankle: left (Examination of the left ankle is on the medial aspect there is swelling and heat) Modifying Factors: Improves With: nothing Associated Symptoms: unable to bear weight (Unable to bear weight without pain.) Allergies/Adverse Reactions: No Known Drug Allergies Allergy (Verified 06/14/22 17:07) Home Medications: Carvedilol [Coreg] 6.25 mg PO BID 12/06/21 [History] Nitroglycerin 0.4 mg Tablet [Nitrostat 0.4 MG Tablet] 0.4 mg SL UD PRN 12/06/21 [History] PANTOPRAZOLE 40 mg Tablet [Protonix 40MG Tablet] 40 mg PO DAILY 12/06/21 [History] Warfarin Sodium 3 mg PO DAILY 12/06/21 [History] Hx Tetanus, Diphtheria Vaccination/Date Given: Yes Hx Influenza Vaccination/Date Given: No Hx Pneumococcal Vaccination/Date Given: No Immunizations Up to Date: Yes Travel Risk - International Travel Have you traveled outside of the country in past 3 weeks: No - Coronavirus Screening Are you exhibiting any of the following symptoms?: No Close contact with a COVID-19 positive Pt in past 14-21 Days: No - Vaccine Status Have you recieved a Covid-19 vaccination: Yes Family Practice Physician Assistant: Moderna - Vaccination Dates Date of 2cond Vaccination (if applicable): 07/16/20 - Review of Systems Constitutional: No Fever, No Chills Eyes: No Symptoms Ears, Nose, & Throat: No Symptoms Respiratory: No Cough, No Dyspnea Cardiac: No Chest Pain, No Edema, No Syncope Abdominal/Gastrointestinal: No Abdominal Pain, No Nausea, No Vomiting, No Diarrhea Genitourinary Symptoms: No Dysuria Musculoskeletal: Joint Redness (Left ankle), Joint Pain, Joint Swelling, No Back Pain, No Neck Pain Skin: No Rash Neurological: No Dizziness, No Focal Weakness, No Sensory Changes Psychological: No Symptoms Endocrine: No Symptoms All Other Systems: Reviewed and Negative - Past Medical History Pertinent Past Medical History: Yes Neurological History: No Pertinent History ENT History: No Pertinent History Cardiac History: Angina, Arrhythmia, Deep Vein Thrombosis, Hypertension Respiratory History: Pulmonary Embolism Endocrine Medical History: No Pertinent History Musculoskeletal History: No Pertinent History, Other GI Medical History: GERD History: No Pertinent History, Other Psycho-Social History: No Pertinent History Male Reproductive Disorders: No Pertinent History Other Medical History: 2004 blood clots behind left knee, and in right lung and pt has been on coumadin since. - Past Surgical History Past Surgical History: Yes Neuro Surgical History: No Pertinent History Cardiac: No Pertinent History Respiratory: No Pertinent History Gastrointestinal: No Pertinent History Genitourinary: No Pertinent History Musculoskeletal: Orthopedic Surgery Male Surgical History: No Pertinent History Other Surgical History: pins in right hand - Social History Smoking Status: Never smoker Exposure to second hand smoke: No Alcohol Use: Socially Drug Use: none Patient Lives Alone: No - Nursing Vital Signs Nursing Vital Signs: Initial Vital Signs Temperature 97.8 F 06/14/22 16:59 Pulse Rate 52 L 06/14/22 16:59 Respiratory Rate 14 06/14/22 16:59 Blood Pressure 137/85 06/14/22 16:59 O2 Sat by Pulse Oximetry 98 06/14/22 16:59 Pain Scale Pain Intensity 0 - Physical Exam General Appearance: alert Eyes, Ears, Nose, Throat Exam: moist mucous membranes Neck Exam: non-tender, supple Cardiovascular/Respiratory Exam: chest non-tender, normal breath sounds, regular rate/rhythm, no respiratory distress Gastrointestinal/Abdominal Exam: non-tender, guarding Back Exam: normal inspection, No vertebral tenderness Hips Exam: bilateral: non-tender, normal inspection, normal range of motion Legs Exam: bilateral leg: non-tender, normal inspection, normal range of motion Knees Exam: bilateral knee: non-tender, normal inspection, normal range of motion Ankle Exam: right ankle: limited range of motion, pain, soft tissue tenderness, swelling, other (Hot to touch) Foot Exam: bilateral foot: non-tender, normal inspection, normal range of motion Neuro/Tendon Exam: normal sensation, normal motor functions Mental Status Exam: alert, oriented x 3, cooperative Skin Exam: normal color, warm, dry SpO2 Interpretation: normal SpO2: 98 O2 Delivery: Room Air - Radiology Exams Left Ankle X-ray Interpretation: Reviewed by me Ordered Tests: Active Orders 24 hr Category Date Time Status ANKLE (3 VIEWS) Stat Exams 06/14/22 17:02 Completed CBC W DIFF Stat Lab 06/14/22 17:35 Results CMP Stat Lab 06/14/22 17:35 Completed SED RATE [Erythrocyte Sedimentation Rate] Stat Lab 06/14/22 17:35 Results Uric Acid Stat Lab 06/14/22 17:35 Completed Lab/Rad Data: Laboratory Result Diagrams 06/14/22 17:35 06/14/22 17:35 Laboratory Results 06/14/22 06/14/22 Range/Units 17:35 17:35 WBC 6.2 (4.0-10.5) x10^3/uL RBC 4.64 (4.1-5.6) x10^6/uL Hgb 14.2 (12.5-18.0) g/dL Hct 43.7 (42-50) % MCV 94.2 (78-100) fL MCH 30.6 (26-32) pg MCHC 32.5 (32-36) g/dL RDW 13.0 (11.5-14.0) % Plt Count 231 (150-450) x10^3/uL MPV 10.4 (7.5-11.0) fL Gran % 50.7 (36.0-66.0) % Immature Gran % (Auto) 0.2 (0.00-0.4) % Nucleat RBC Rel Count 0.0 (0.00-0.1) % Eos # (Auto) 0.28 (0-0.5) x10^3/uL Immature Gran # (Auto) 0.01 (0.00-0.03) x10^3u/L Absolute Lymphs (auto) 1.98 (1.0-4.6) x10^3/uL Absolute Monos (auto) 0.77 (0.0-1.3) x10^3/uL Absolute Nucleated RBC 0.00 (0.00-0.01) x10^3u/L Lymphocytes % 31.7 (24.0-44.0) % Monocytes % 12.3 H (0.0-12.0) % Eosinophils % 4.5 (0.00-5.0) % Basophils % 0.6 (0.0-0.4) % Absolute Granulocytes 3.16 (1.4-6.9) x10^3/uL Basophils # 0.04 (0-0.4) x10^3/uL ESR Pending Sodium 142 (137-145) mmol/L Potassium 4.5 (3.5-5.1) mmol/L Chloride 102 (98-107) mmol/L Carbon Dioxide 31 H (22-30) mmol/L Anion Gap 13.7 (5-15) MEQ/L BUN 20 (9-20) mg/dL Creatinine 1.24 (0.66-1.25) mg/dL Estimated GFR > 60.0 ML/MIN Glucose 114 H (74-106) mg/dL Uric Acid 5.7 (3.5-7.2) mg/dL Calcium 8.9 (8.4-10.2) mg/dL Total Bilirubin 0.50 (0.2-1.3) mg/dL AST 36 (17-59) U/L ALT 38 (0-50) U/L Alkaline Phosphatase 71 (38-126) U/L Serum Total Protein 8.0 (6.3-8.2) g/dL Albumin 4.4 (3.5-5.0) g/dL - Progress Progress: unchanged Medical Desision Making - Diagnostic Testing Diagnostic test were ordered, analyzed, and reviewed by me: Yes Radiological Interpretation: Reviewed by me - Risk of complications The pt has a mod risk of morbidity or mortality based on: Need for prescription drug management - Departure Departure Disposition: Home Clinical Impression: Arthritis Condition: Stable Critical Care Time: No Referrals: DAYAN ROD [Primary Care Provider] - Follow up/PCP as directed Instructions: Osteoarthritis (DC) Prescriptions: Methylprednisolone Packet [Medrol Dosepack] 4 mg PO UD #1 packet
--- NOTE | 2022-06-14 17:23 | XRAY ---
Indication: Pain and swelling. Comparison: None 3 view left ankle demonstrates diffuse soft tissue swelling/edema, tiny heel spurs, and tiny lower leg subcutaneous calcified granulomas. No other bony, articular, or soft tissue abnormalities.
[2022-06-14 17:40] LABS: Absolute Neutrophil Ct (ANC) 3.16 x10^3/uL (1.4-6.9); BASOPHIL % 0.6 % (0.0-0.4); Basophil (Absolute #) 0.04 x10^3/uL (0-0.4); Eosinophil % 4.5 % (0.00-5.0); Eosinophil (Absolute #) 0.28 x10^3/uL (0-0.5); Hematocrit 43.7 % (42-50); Hemoglobin 14.2 g/dL (12.5-18.0); IMMATURE GRAN # 0.01 x10^3u/L (0.00-0.03); IMMATURE GRAN % 0.2 % (0.00-0.4); Lymphocyte (Absolute #) 1.98 x10^3/uL (1.0-4.6); Lymphocytes % 31.7 % (24.0-44.0); Mean Cell Volume 94.2 fL (78-100); Mean Corpuscular Hemoglobin 30.6 pg (26-32); Mean Corpuscular Hgb Concent. 32.5 g/dL (32-36); Mean Platelet Volume 10.4 fL (7.5-11.0); Monocyte (Absolute #) 0.77 x10^3/uL (0.0-1.3); Monocytes % 12.3 % (0.0-12.0); Neutrophil % 50.7 % (36.0-66.0); Platelet Count 231 x10^3/uL (150-450); Red Blood Count 4.64 x10^6/uL (4.1-5.6); White Blood Count 6.2 x10^3/uL (4.0-10.5)
[2022-06-14 17:50] LABS: ALBUMIN 4.4 g/dL (3.5-5.0); ALKALINE PHOSPHATASE 71 U/L (38-126); ANION GAP 13.7 MEQ/L (5-15); BLOOD UREA NITROGEN 20 mg/dL (9-20); CHLORIDE 102 mmol/L (98-107); Calcium 8.9 mg/dL (8.4-10.2); Carbon Dioxide 31 mmol/L (22-30); Creatinine 1 1.24 mg/dL (0.66-1.25); EST GLOMERULAR FILTRATION RATE > 60.0 ML/MIN; Glucose 114 mg/dL (74-106); Potassium 4.5 mmol/L (3.5-5.1); SGOT/AST 36 U/L (17-59); SGPT/ALT 38 U/L (0-50); SODIUM 142 mmol/L (137-145); Uric Acid 5.7 mg/dL (3.5-7.2)
[2022-06-14] MEDS ORDERED: Kenalog-40 IM ONE (18:10)
[2022-06-14] MEDS ORDERED: Kenalog-40 ONE (18:13)
[2022-06-14 18:15] LABS: Erythrocyte Sedimentation Rate 33 mm/hr (0-15)
[2022-06-14 18:18] VITALS: BP 130/80; PULSE 46; O2SAT 97
== END 2022-06-14 18:40 | disposition home or self-care (01) ==
LOC: ED 16:53
DX: M19.072 Primary osteoarthritis, left ankle and foot (principal); M25.572 Pain in left ankle and joints of left foot; I10 Essential (primary) hypertension; Z79.01 Long term (current) use of anticoagulants; Z79.899 Other long term (current) drug therapy
CPT/HCPCS: 36415; 73610; 80053; 84550; 85025; 85652; 86140; 96372; 99283; J3301